=== PATIENT | male | born 1960 | race Caucasian/White ===

== ENCOUNTER → 2016-08-15 | Outpatient (CLI) | payer OTHER | LOC: LAB SRH 14:45 | DX: I42.9 Cardiomyopathy, unspecified (principal) | CPT/HCPCS: 90047; 90074 ==

== ENCOUNTER 2016-10-18 14:39 | Outpatient (CLI) | payer OTHER | END 2016-10-18 23:00 | LOC: LAB SRH 14:39 | DX: E11.65 Type 2 diabetes mellitus with hyperglycemia (principal); N18.9 Chronic kidney disease, unspecified | CPT/HCPCS: 90047; 90074; 91286; 92690 ==